=== PATIENT | male | born 1995 ===

== ENCOUNTER 2020-04-10 19:11 | Emergency (ER) | payer BC, OTHER ==
[~2020-04-10] VITALS: Ht 185 cm; Wt 113.0 kg
--- NOTE | 2020-04-10 19:45 | ED General ---
General Chief Complaint: Respiratory Problems Stated Complaint: SOB; STOMACH ACHE; CHILLS; DIARRHEA Nursing Triage Note: patient states last two days has been having shortness of breath, has felt hot, and has had diarrhea, patient states about a week ago was around someone positive with COVID Nursing Sepsis Screen: No Definite Risk Source of Information: Patient Exam Limitations: No Limitations History of Present Illness Date Seen by Provider: Apr 10, 2020 Time Seen by Provider: 19:25 Initial Comments This 25-year-old young man presents to the emergency room on day 3 of flulike symptoms. He has had chills, feverish sensation, shortness of breath, palpitations, mild backache and diarrhea. He had a known exposure about a week ago. 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 He has had no cough. Symptoms seem to have improved over the last 24 hours except for the shortness of breath. He has no respiratory distress. He has no chronic health problems. Allergies and Home Medications Patient Home Medication List Home Medication List Reviewed: Yes Review of Systems Review of Systems Constitutional: see HPI EENTM: no symptoms reported Respiratory: see HPI Cardiovascular: see HPI Gastrointestinal: see HPI Genitourinary: no symptoms reported Musculoskeletal: back pain Skin: no symptoms reported Psychiatric/Neurological: No Symptoms Reported Hematologic/Lymphatic: No Symptoms Reported Immunological/Allergic: no symptoms reported Past Cxeqaal-Bifekz-Yxpysz Hx Past Med/Social Hx: Reviewed and Corrections made Patient Social History Recent Foreign Travel: No Contact w/Someone Who Travel: No Recent Infectious Disease Expo: No Seasonal Allergies Seasonal Allergies: Yes Past Medical History Surgeries: No Respiratory: No Cardiac: Yes Palpitations Neurological: No Genitourinary: No Gastrointestinal: No Musculoskeletal: No Endocrine: No HEENT: No Cancer: No Psychosocial: No Integumentary: No Physical Exam Vital Signs Vital Signs - First Documented 04/10/20 19:31 Temp 36.4 Pulse 91 Resp 18 B/P (MAP) 130/90 (103) Pulse Ox 96 O2 Delivery Room Air Capillary Refill : Less Than 3 Seconds Height, Weight, BMI Height: '" Weight: lbs. oz. 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 Skin: Normal Color, Warm/Dry Progress/Results/Core Measures Suspected Sepsis Recent Fever Within 48 Hours: No Infection Criteria Present: None New/Unexplained Altered Menta: No Sepsis Screen: No Definite Risk SIRS Temperature: Pulse: 91 Respiratory Rate: 18 Blood Pressure 130 /90 Mean: 103 Results/Orders Lab Results Laboratory Tests Test 04/10/20 19:30 Range/Units Micro Results Microbiology 04/10/20 Influenza Types A,B Antigen ([facility]) - Final, Complete My Orders Orders - THIERNO ALSTON MD Influenza A And B Antigens (04/10/20 19:40) Coronavirus Sars-Cov-2 So 2018 (04/10/20 19:40) Vital Signs/I&O 04/10/20 19:31 Temp 36.4 Pulse 91 Resp 18 B/P (MAP) 130/90 (103) Pulse Ox 96 O2 Delivery Room Air Capillary Refill : Less Than 3 Seconds Blood Pressure Mean: 103 Progress Note : Progress Note Vital signs are stable. Influenza screen was negative. COVID-19 PCR test was collected. Patient advised to quarantine until results is known. Discharge ins tructions were reviewed and patient was invited to call or return if symptoms worsen. Departure Impression Primary Impression: Flu-like symptoms Additional Impression: Person under investigation for COVID-19 Disposition: 01 HOME, SELF-CARE Condition: Stable Departure-Patient Inst. Decision time for Depature: 20:19 Patient Instructions: Coronavirus Disease 2019 (COVID-19) (DC) Add. Discharge Instructions: Maintain quarantine until the results of your COVID-19 test is known. If the test is positive, remain in quarantine until released by the health department. You may take Tylenol and/or ibuprofen for fever or pain. Return to care if you have significant worsening of symptoms. Stay well-hydrated with plenty of clear liquids. Some research suggest supplements such as a multivitamin, extra vitamin C, elderberry, zinc, and extra vitamin D may be helpful in treating COVID-19. All discharge instructions reviewed with patient and/or family. Voiced understanding. THIERNO ALSTON MD Apr 10, 2020 19:45
[2020-04-10 20:00] VITALS: BP 130/90
== END 2020-04-10 20:00 | disposition home or self-care (01) ==
LOC: ER 19:14
DX: R06.02 Shortness of breath (principal); R50.9 Fever, unspecified; R00.2 Palpitations; R19.7 Diarrhea, unspecified; R51.9 Headache, unspecified; Z20.828 Contact with and (suspected) exposure to other viral communicable diseases
CPT/HCPCS: 87804; 99282; U0002; 87635